=== PATIENT | female | born 1965 | race Two or more races ===

== ENCOUNTER 2020-08-13 09:32 | Emergency (ER) | payer SELFPAY ==
[~2020-08-13] VITALS: Ht 149.9 cm; Wt 57.7 kg
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
[2020-08-13 10:05] LABS: BASO % 1 % (0-3); EOS # 0.1 x10^3/uL (0.0-0.7); EOS % 2 % (0-3); HEMATOCRIT 39.8 % (36.0-47.0); HEMOGLOBIN 13.9 g/dL (12.0-15.5); LYMPH # 2.4 x10^3/uL (1.0-4.8); LYMPH % 29 % (24-48); MEAN CORPUSCULAR HEMOGLOBIN 31 pg (25-35); MEAN CORPUSCULAR HGB CONC 35 g/dL (31-37); MEAN CORPUSCULAR VOLUME 89 fL (79-100); MONO # 0.5 x10^3/uL (0.0-1.1); MONO % 6 % (0-9); NEUT # 5.1 x10^3/uL (1.8-7.7); NEUT % 63 % (31-73); PLATELET COUNT 293 x10^3/uL (140-400); RED BLOOD COUNT 4.47 x10^6/uL (3.50-5.40); WHITE BLOOD COUNT 8.1 x10^3/uL (4.0-11.0)
[2020-08-13 10:14] LABS: CALCIUM 9.4 mg/dL (8.5-10.1); CREATININE 0.7 mg/dL (0.6-1.0); GFR 86.2; POTASSIUM 4.1 mmol/L (3.5-5.1)
[2020-08-13 10:19] LABS: ALBUMIN 4.1 g/dL (3.4-5.0); ALBUMIN/GLOBULIN RATIO 1.1 (1.0-1.7); TOTAL BILIRUBIN 0.4 mg/dL (0.2-1.0); TOTAL PROTEIN 7.7 g/dL (6.4-8.2)
--- NOTE | 2020-08-13 10:58 | RAD ---
CT THORAX WO dated 08/13/2020 10:32 AM Indication:Reason: sternum and anterior rib injury/pain / Spl. Instructions: / History: Comparison: No comparison is available. Technique: Noncontrast images were performed. Sagittal and coronal reconstructions were obtained. One or more of the following individualized dose reduction techniques were utilized for this examinat ion: 1. Automated exposure control 2. Adjustment of the mA and/or kV according to patient size 3. Use of iterative reconstruction technique Findings: The lungs are clear. There is no apparent effusion or pneumothorax. The central airways appear normal . No adenopathy is seen. There is no apparent mediastinal hemorrhage. Images through the upper abdome n show no abnormality. Bone windows show some irregularity of the sternum in its mid segment with a defect consistent with a fracture, although it is possible this is not acute, as some of the margins are sclerotic. There is a small amount of internal air density without evidence of overlying penetrating injury. No acute rib abnormality is identified. The anterior right fourth rib has some cortical irregularity that could r elate to a prior fracture. IMPRESSION: There is abnormality of the mid sternum between the anterior third and fourth rib levels. There appea rs to be a fracture, although this may not be acute. Internal air density is nonspecific, although th ere is no overlying penetrating injury as a source. Early infection is a consideration. Correlation w ith the duration and type of injury will be useful. Electronically signed by: Gabriel Brewster Jr., MD (08/13/2020 10:55 AM) [id number]
[2020-08-13 11:06] VITALS: BP 133/77
[2020-08-13] MEDS ORDERED: ACET1TAB33 PO (11:10)
--- NOTE | 2020-08-15 07:19 | EKG ---
[facility] [address] [place] [address] Test Date: 2020-08-13 Test Time: 09:38:16 Pat Name: DENISE HERNANDEZ Department: Room: Gender: F Specialist Wound Care: : 1965 Requested By: ASHLEY CARVALHO Order Number: [id number] Reading MD: Measurements Intervals [place] Rate: 74 P: -41 CO: 118 QRS: 51 QRSD: 78 T: 23 QT: 380 QTc: 422 Interpretive Statements SINUS RHYTHM NORMAL ECG RI6.02 No previous ECG available for comparison
--- NOTE | 2020-08-15 09:11 | NUR ---
IP: Attempted to contact pt concerning COVID results. Phone number provided is a wrong number per person who answered. The emergency contact number in the EMR is also a number not in service.
== END 2020-08-13 11:27 | disposition home or self-care (01) ==
LOC: ER 09:32
DX: S22.20XA Unspecified fracture of sternum, initial encounter for closed fracture (principal); Z20.822 Contact with and (suspected) exposure to COVID-19; R07.89 Other chest pain; R05 Cough; F31.9 Bipolar disorder, unspecified; Z87.891 Personal history of nicotine dependence; Z90.49 Acquired absence of other specified parts of digestive tract; Y08.89XA Assault by other specified means, initial encounter; Y93.89 Activity, other specified; Y92.89 Other specified places as the place of occurrence of the external cause; Y99.8 Other external cause status
CPT/HCPCS: 36415; 71250; 80053; 84484; 85025; 85379; 93005; 99285; C9803; U0003; U0005